=== PATIENT | female | born 1960 | race African-American/Black ===

== ENCOUNTER 2017-06-22 15:40 | Outpatient (CLI) | payer BC ==
--- NOTE | 2017-06-22 17:09 | ULT ---
PELVIC ULTRASOUND: 06/22/17 COMPARISON: None. HISTORY: Postmenopausal female with abnormal Pap smear. Left lower quadrant pain for two weeks. TECHNIQUE: Multiplanar mcmanus scale and color doppler images were obtained in a transabdominal and transvaginal p elvic ultrasound. Spectral analysis of the doppler waveforms of the ovaries were performed. FINDINGS: There is a 4.2 cm fibroid in the anterior aspect of the uterus. No other uterine abnormality is seen . The endometrial stripe is upper limits of normal in thickness measuring 9 mm near the cervix. The right ovary is not visualized. The left ovary demonstrates normal internal flow and is normal in appearance. No free fluid is seen in the pelvis. IMPRESSION: 1. Fibroid uterus. 2. There appears to be thickening of the endometrial stripe in this postmenopausal female. Carissa elate with Pap smear. POS: NELY
== END 2017-06-22 15:41 | disposition home or self-care (01) ==
LOC: ULT 15:40
PROVIDERS: ATTEND Family Medicine
DX: R87.619 Unspecified abnormal cytological findings in specimens from cervix uteri (principal); D25.9 Leiomyoma of uterus, unspecified
CPT/HCPCS: 76856

== ENCOUNTER 2017-07-27 14:28 | Outpatient (CLI) | payer BC ==
--- NOTE | 2017-07-27 17:32 | MMO ---
BILATERAL MAMMOGRAMS: HISTORY: Screening mammography. COMPARISON: Baseline study. FINDINGS: Scattered fibroglandular densities and benign-appearing calcifications are present. There is no dom inant mass or suspicious calcifications. The study was evaluated with the assistance of computer-aided detection. IMPRESSION: BI-RADS category 1. Negative. Suggest routine followup. POS: NELY
== END 2017-07-27 14:29 | disposition home or self-care (01) ==
LOC: MAMMO 14:28
PROVIDERS: ATTEND Family Medicine
DX: Z12.31 Encounter for screening mammogram for malignant neoplasm of breast (principal)
CPT/HCPCS: 77067; G0202

== ENCOUNTER 2018-11-16 15:47 | Outpatient (CLI) | payer BC | END 2018-11-16 15:48 | disposition home or self-care (01) | LOC: BICMAMMO 15:47 | PROVIDERS: ATTEND Family Medicine | DX: Z12.31 Encounter for screening mammogram for malignant neoplasm of breast (principal) | CPT/HCPCS: 77063; 77067 ==

== ENCOUNTER 2021-02-02 12:10 | Outpatient (CLI) | payer BC | END 2021-02-02 12:11 | disposition home or self-care (01) | LOC: BICMAMMO 12:10 | PROVIDERS: ATTEND Nurse Practitioner Family | DX: Z12.31 Encounter for screening mammogram for malignant neoplasm of breast (principal); N64.89 Other specified disorders of breast | CPT/HCPCS: 77063; 77067 ==

== ENCOUNTER 2021-02-10 14:51 | Outpatient (CLI) | payer BC | END 2021-02-10 14:52 | disposition home or self-care (01) | LOC: BICMAMMO 14:51 | PROVIDERS: ATTEND Nurse Practitioner Family | DX: R92.2 Inconclusive mammogram (principal) | CPT/HCPCS: G0279 ==

== ENCOUNTER 2024-07-13 08:24 | Outpatient (CLI) | payer MEDICARE | END 2024-07-13 08:25 | disposition home or self-care (01) | LOC: BICMAMMO 08:24 | PROVIDERS: ATTEND Preventive Medicine Preventive Medicine/Occupational Environmental Medicine | DX: Z12.31 Encounter for screening mammogram for malignant neoplasm of breast (principal) | CPT/HCPCS: 77063; 77067 ==

== ENCOUNTER 2025-09-05 07:41 | Outpatient (CLI) | payer MEDICARE | END 2025-09-05 07:42 | disposition home or self-care (01) | LOC: BICMAMMO 07:41 | PROVIDERS: ATTEND Family Medicine | DX: Z12.31 Encounter for screening mammogram for malignant neoplasm of breast (principal); Z13.820 Encounter for screening for osteoporosis; Z78.0 Asymptomatic menopausal state; M85.851 Other specified disorders of bone density and structure, right thigh; M85.852 Other specified disorders of bone density and structure, left thigh | CPT/HCPCS: 77063; 77067; 77080 ==